=== PATIENT | male | born 1970 | race Caucasian/White ===

== ENCOUNTER 2022-02-27 00:51 | Day surgery (SDC) | payer OTHER, BC, SELFPAY ==
[2022-02-09 12:49] VITALS: BMI 29.7
[2022-02-27 10:31] VITALS: BP 131/80; PULSE 58; RESP 16; TEMP 36.9; O2SAT 99; BMI 30.4
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
[2022-02-27] MEDS: LACTATED RINGERS 1,000 ML 150 ML IV CONT (10:41)
[2022-02-27] MEDS: SIMETHICONE ORAL SUSPENSION 20 MG/0.3 ML 30 ML BOTTLE 0.6 ML IRRIGATION (11:32)
[2022-02-27 11:42] VITALS: BP 108/70; PULSE 60; RESP 15; O2SAT 99
[2022-02-27 11:52] VITALS: BP 129/84; PULSE 68; RESP 18; O2SAT 100
[2022-02-27 12:02] VITALS: BP 133/84; PULSE 68; RESP 18; O2SAT 100
== END 2022-02-27 12:09 | disposition home or self-care (01) ==
PROVIDERS: PCP Family Medicine Sports Medicine; Visit Provider Internal Medicine Gastroenterology
PROC: 0DJD8ZZ Inspection of Lower Intestinal Tract, Via Natural or Artificial Opening Endoscopic (ICD-10-PCS; CPT 45378; principal; 2022-02-27 11:30)
DX: Z12.11 Encounter for screening for malignant neoplasm of colon (principal); K64.8 Other hemorrhoids; K62.1 Rectal polyp; E66.9 Obesity, unspecified; Z68.30 Body mass index [BMI] 30.0-30.9, adult
CPT/HCPCS: 45380; 88305; J2704; J7120